=== PATIENT | male | born 1995 | race Caucasian/White ===

== ENCOUNTER 2017-04-26 15:44 | Emergency (ER) | payer OTHER ==
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
[~2017-04-26 15:44] MED LIST: AMOXICILLIN500 M1 PO; DICLOFENAC; FIORICET 50-321 EACH PO; FLEXERIL10 MG; MINOCIN PO; MUCINEX DM1 TAB.SR . PO; NAPROSYN250 M1 PO; NO MEDICATIONS; VOLTAREN75 MG PO
[2017-04-26] MEDS ORDERED: MOTRIN600 MG PO (15:48)
== END 2017-04-26 17:57 | disposition home or self-care (01) ==
LOC: SED 15:44
DX: S46.912A Strain of unspecified muscle, fascia and tendon at shoulder and upper arm level, left arm, initial encounter (principal); S16.1XXA Strain of muscle, fascia and tendon at neck level, initial encounter; F17.210 Nicotine dependence, cigarettes, uncomplicated; Z79.899 Other long term (current) drug therapy; V49.40XA Driver injured in collision with unspecified motor vehicles in traffic accident, initial encounter; Y92.410 Unspecified street and highway as the place of occurrence of the external cause
CPT/HCPCS: 72040; 73030; 99283

== ENCOUNTER 2017-04-28 18:16 | Emergency (ER) | payer OTHER ==
[~2017-04-28 18:16] MED LIST changes: +MOTRIN600 MG PO
[2017-04-28] MEDS ORDERED: FLEXERIL PO (18:24)
[2017-04-28] MEDS ORDERED: DICLOFENAC PO (18:24)
== END 2017-04-28 19:52 | disposition home or self-care (01) ==
LOC: SED 18:16
DX: G89.29 Other chronic pain (principal); M54.5 Low back pain; R03.0 Elevated blood-pressure reading, without diagnosis of hypertension; F17.210 Nicotine dependence, cigarettes, uncomplicated; Z79.899 Other long term (current) drug therapy
CPT/HCPCS: 96372; 99283; J1885